=== PATIENT | male | born 1995 | race Caucasian/White ===

== ENCOUNTER 2018-11-02 12:12 | Emergency (ER) | payer SELFPAY ==
[~2018-11-02] VITALS: Ht 185.4 cm; Wt 99.0 kg
[2018-11-02] MEDS ORDERED: HYDROCODONE/ACETAMINOPHEN 5/325MG TABLET PO ONE (15:15)
[2018-11-02 16:20] VITALS: BP 123/60
== END 2018-11-02 16:25 | disposition home or self-care (01) ==
LOC: ER 12:12
DX: S62.141A Displaced fracture of body of hamate [unciform] bone, right wrist, initial encounter for closed fracture (principal); F12.10 Cannabis abuse, uncomplicated; X58.XXXA Exposure to other specified factors, initial encounter; Y93.89 Activity, other specified; Y92.89 Other specified places as the place of occurrence of the external cause; Y99.8 Other external cause status
CPT/HCPCS: 29125; 73110; 73130; 99283

== ENCOUNTER 2019-01-25 13:51 | Emergency (ER) | payer SELFPAY ==
[~2019-01-25] VITALS: Ht 185.4 cm; Wt 100.0 kg
[2019-01-25] MEDS ORDERED: BENZONATATE 200MG CAPSULE PO ONE (16:00)
[2019-01-25 16:32] VITALS: BP 121/78
== END 2019-01-25 16:37 | disposition home or self-care (01) ==
LOC: ER 13:51
DX: R05 Cough (principal)
CPT/HCPCS: 99283